=== PATIENT | female | born 1970 | race Caucasian/White ===

== ENCOUNTER 2023-03-17 13:29 | Outpatient (RCR) | payer OTHER, SELFPAY | END 2023-03-17 23:59 | disposition home or self-care (01) | LOC: RPT 13:29 | PROVIDERS: ATTENDING PHYSICIAN Surgery; FAMILY PHYSICIAN Nurse Practitioner Adult Health | DX: C50.411 Malignant neoplasm of upper-outer quadrant of right female breast (principal); C50.912 Malignant neoplasm of unspecified site of left female breast | CPT/HCPCS: 97161; 97535 ==

== ENCOUNTER → 2023-03-25 10:01 | Outpatient (REF) | payer OTHER, SELFPAY ==
[2023-03-25 10:31] LABS: % Basophils 1.6 % (0-2); % Eosinophils 4.6 % (0-6); % Lymphocytes 17.7 % (20.5-51.1); % Monocytes 8.8 % (1.7-9.3); % Neutrophils 67.3 % (42.2-75.2); Absolute Basophils 0.1 10^3/uL (0-0.2); Absolute Eosinophils 0.2 10^3/uL (0-0.7); Absolute Lymphocytes 0.7 10^3/uL (1.2-3.4); Absolute Monocytes 0.3 10^3/uL (0.1-0.6); Absolute Neutrophils 2.5 10^3/uL (1.4-6.5); Hematocrit 38.1 % (37.0-47.0); Hemoglobin 12.6 g/dL (12.0-16.0); Mean Corp Hgb Conc. 33.1 g/dL (33.0-37.0); Mean Corpuscular Hgb 32.7 pg (27.0-31.0); Nucleated Red Blood Cells % 0 %; Platelet Count 258 10^3/uL (130-400); Red Blood Cell Count 3.85 10^6/uL (4.20-5.40); Red Cell Dist. Width 11.7 % (11.5-14.5); White Blood Cell Count 3.7 10^3/uL (4.8-10.8)
== END ==
LOC: REG 10:01
PROVIDERS: ATTENDING PHYSICIAN Surgery; FAMILY PHYSICIAN Nurse Practitioner Adult Health
DX: C50.411 Malignant neoplasm of upper-outer quadrant of right female breast (principal); Z01.812 Encounter for preprocedural laboratory examination
CPT/HCPCS: 36415; 85025

== ENCOUNTER → 2023-03-26 11:27 | Outpatient (REF) | payer OTHER, SELFPAY | LOC: WDC 11:27 | PROVIDERS: ATTENDING PHYSICIAN Surgery | DX: C50.411 Malignant neoplasm of upper-outer quadrant of right female breast (principal); C50.412 Malignant neoplasm of upper-outer quadrant of left female breast | CPT/HCPCS: 38792; 76942; A9541 ==

== ENCOUNTER 2023-03-27 07:01 | Inpatient (IN) | payer OTHER, SELFPAY ==
[2023-03-18 09:00] VITALS: BMI 34.7
[2023-03-18 09:06] LABS: Hematocrit 36.2 % (37.0-47.0); Hemoglobin 12.2 g/dL (12.0-16.0); Mean Corp Hgb Conc. 33.7 g/dL (33.0-37.0); Mean Corpuscular Volume 97.8 fL (81.0-99.0); Mean Platelet Volume 9.3 fL (7.4-10.4); Platelet Count 206 10^3/uL (130-400); White Blood Cell Count 2.4 10^3/uL (4.8-10.8)
[2023-03-18 10:02] LABS: ALT (SGPT) 33 U/L (0-35); AST (SGOT) 29 U/L (14-36); Albumin 4.2 g/dl (3.5-5.0); Alkaline Phosphatase 87 U/L (38-126); Blood Urea Nitrogen 21 mg/dl (7-17); Calcium 9.6 mg/dl (8.4-10.2); Carbon Dioxide 25 mmol/L (22-30); Chloride 102 mmol/L (98-107); Estimated Creatinine Clearance 95 ml/min; Glucose 101 mg/dl (70-99); Potassium 4.4 mmol/L (3.5-5.1); Sodium 138 mmol/L (135-145); Total Bilirubin 0.7 mg/dl (0.2-1.3); Total Protein 6.8 g/dl (6.3-8.2); eGFR > 60.00
[2023-03-18 10:08] LABS: Prealbumin (Transthyretin) 28.3 mg/dl (17.6-36.0)
[2023-03-18 10:22] LABS: Vitamin D, 25-OH*** 42.2 ng/mL (30-80)
[2023-03-27] VITALS (12 sets, daily range): BP systolic 10–135; BP diastolic 59–91; BMI 34.7; BMI 35.8
[2023-03-27] MEDS: NORMOSOL-R 1000 IV (11:43)
[2023-03-27] MEDS: TYLENOL 1000 MG PO (11:43)
--- NOTE | 2023-03-27 16:34 | W.IMMPOSTOP ---
Surgical Immed Post Op Note
-
Primary Surgeon: Lobo
Assisting Surgeon: None
Pre-op Diagnosis: Bilateral breast cancer S/P neoadjuvant chemotherapy
Post-op Diagnosis: Same
Procedure Performed: Bilateral mastectomies, bilateral sentinel lymph node mapping and biopsy, removal of right portacath
Anesthesia Type: GET
Specimen / Cultures: Bilateral breasts, bilateral sentinel nodes
Estimated Blood Loss: 20cc
Complications: None
Operative Findings: Neg lymph nodes bilaterally
Liberal Node Bx Breast Cancer
Liberal Node Bx Breast Cancer
Operation performed with curative intent: Yes
Tracer(s) to ID Liberal Nodes in Non-Neoadjuvant setting: N/A
Tracer(s) to ID Sentinal Nodes in the Neoadjuvant Setting: Dye and Radioactive Tracer
All nodes at end of dye-filled Lymphatic Channel removed: Yes
All Significantly Radioactive Nodes were removed: Yes
All Palpably Suspicious Nodes were Removed: Yes
Bx Proven Pos Nodes Marked Prior to Chemo ID'd & Removed: Yes
[2023-03-27] MEDS: D5/0.45%NSS with KCL 20 MEQ 1000 IV (17:29)
--- NOTE | 2023-03-27 18:12 | PTCARENOTE ---
Patient admitted from [facility] post b/l mastectomy with lymph node removal.Vital signs are stable.The patient says she is having some numbness in her right hand but is otherwise comfortable.She has a surgical bra with abd's and gauze which is clean and
dry.The patient is in her bed with the call garnett.Her is at the bedside.
[2023-03-27] MEDS: COLACE 100 MG PO (20:44)
[2023-03-27] MEDS: COMPAZINE 5 MG IV (22:29)
[2023-03-28 03:05] VITALS: BP 127/73
[2023-03-28] MEDS: D5/0.45%NSS with KCL 20 MEQ 1000 IV (05:10)
[2023-03-28] MEDS: MOTRIN 600 MG PO (05:14)
[2023-03-28 06:28] LABS: Hematocrit 31.8 % (37.0-47.0); Hemoglobin 10.7 g/dL (12.0-16.0)
[2023-03-28 07:30] VITALS: BP 121/78
--- NOTE | 2023-03-28 08:24 | W.PN.UPDATE ---
Update Note
Progress Note Update
Pt is POD #1 S/P bilateral mastectomies, sentinel lymph node mapping and biopsies and removal right port. Resting comfortably in bed. Has only taken Motrin for discomfort. All flaps viable, no bleeding and drains functioning well. Plan D/C to home
today with [facility] for drain care. See me in office in 2 weeks.
--- NOTE | 2023-03-28 08:29 | W.DCSUMMARY ---
Discharge Summary
Discharge Data
Date of Admission: 03/27/23
Date of Discharge: 03/28/23
Total time spent discharging patient (in min): 15
-
Pending Results: Yes
Additional Pending Results:
Pathology bilateral breasts and sentinel nodes
Hospital Course
Smooth, tolerating PO pain med and intake. No evidence of bleeding
Discharge Plan
-
Patient Disposition: Home (Routine Discharge)
Discharge Diagnosis/Procedures: Bilateral breast cancer S/P neoadjuvant chemotherapy
Condition: Good
Diet: No restrictions
Additional Diets: Increase daily protein [id number]
Activity: No strenuous activity
Driving Restrictions: No driving for 1 week
Bathing Restrictions: OK to Shower
Other Services: [facility]
Wound Care: change dressings daily
Referrals:
Tessa Ho CRNP [Family Provider] -
Prescriptions:
Continued
lisinopril 10 mg Tablet
10 mg PO DAILY
Nutrafol
4 cap PO DAILY
Discharge Orders:
Discharge Patient (As Directed); Ordered 03/28/23
Ordered By: Sumi Diamond
[2023-03-28] MEDS: PROTONIX 40 MG PO (09:01)
[2023-03-28] MEDS: COLACE 100 MG PO (09:01)
[2023-03-28] MEDS: ZESTRIL 10 MG PO (09:01)
--- NOTE | 2023-03-28 10:00 | CM ---
sustainable products marketing manager reviewed patient's chart and met with patient and spouse at bedside, patient resides with her spouse in a 2 story home, patient is independent with adl's and ambulation, no dme, patient drives, patient has a prescription plan and uses
[facility].
PCP: Tessa Gao.
Plan; Home with [facility], [facility]
== END 2023-03-28 10:48 | disposition home health service (06) | DRG 581 ==
LOC: 2 SOUTH 07:01
PROVIDERS: ADMITTING PHYSICIAN Surgery; FAMILY PHYSICIAN Nurse Practitioner Adult Health
PROC: 02PY03Z Removal of Infusion Device from Great Vessel, Open Approach (ICD-10-PCS; 2023-03-27)
PROC: 07B50ZX Excision of Right Axillary Lymphatic, Open Approach, Diagnostic (ICD-10-PCS; 2023-03-27)
PROC: 0JPT0XZ Removal of Tunneled Vascular Access Device from Trunk Subcutaneous Tissue and Fascia, Open Approach (ICD-10-PCS; 2023-03-27)
PROC: 0HTV0ZZ Resection of Bilateral Breast, Open Approach (ICD-10-PCS; 2023-03-27)
DX: C50.911 Malignant neoplasm of unspecified site of right female breast (principal); C50.912 Malignant neoplasm of unspecified site of left female breast; I10 Essential (primary) hypertension; E78.00 Pure hypercholesterolemia, unspecified; Z17.0 Estrogen receptor positive status [ER+]; Z92.21 Personal history of antineoplastic chemotherapy
CPT/HCPCS: 88307; 88332; 36415; 80053; 82306; 84134; 85014; 85018; 85027; 88331; 88342; 93005; A4648; C1729

== ENCOUNTER 2023-04-22 19:12 | Outpatient (RCR) | payer OTHER, SELFPAY | END 2023-04-22 23:59 | disposition home or self-care (01) | LOC: RPT 19:12 | PROVIDERS: ATTENDING PHYSICIAN Surgery; FAMILY PHYSICIAN Nurse Practitioner Adult Health | DX: I97.2 Postmastectomy lymphedema syndrome (principal); C50.411 Malignant neoplasm of upper-outer quadrant of right female breast | CPT/HCPCS: 97140 ==

== ENCOUNTER 2023-05-22 12:57 | Outpatient (RCR) | payer OTHER, SELFPAY | END 2023-05-22 23:59 | disposition home or self-care (01) | LOC: RPT 12:57 | PROVIDERS: ATTENDING PHYSICIAN Surgery; FAMILY PHYSICIAN Nurse Practitioner Adult Health | DX: I97.2 Postmastectomy lymphedema syndrome (principal); C50.411 Malignant neoplasm of upper-outer quadrant of right female breast; Z90.13 Acquired absence of bilateral breasts and nipples | CPT/HCPCS: 97110; 97140; 97535 ==

== ENCOUNTER → 2023-06-01 09:31 | Outpatient (REF) | payer OTHER, SELFPAY | LOC: RAD 09:31 | PROVIDERS: ATTENDING PHYSICIAN Internal Medicine Hematology & Oncology; FAMILY PHYSICIAN Nurse Practitioner Adult Health | DX: C50.412 Malignant neoplasm of upper-outer quadrant of left female breast (principal) | CPT/HCPCS: 77080 ==

== ENCOUNTER 2023-06-23 09:57 | Outpatient (RCR) | payer OTHER, SELFPAY | END 2023-06-23 23:59 | disposition home or self-care (01) | LOC: RPT 09:57 | PROVIDERS: ATTENDING PHYSICIAN Surgery; FAMILY PHYSICIAN Nurse Practitioner Adult Health | DX: C50.411 Malignant neoplasm of upper-outer quadrant of right female breast (principal); Z73.6 Limitation of activities due to disability | CPT/HCPCS: 97110; 97140 ==

== ENCOUNTER 2023-07-03 09:59 | Outpatient (RCR) | payer OTHER, SELFPAY | END 2023-07-03 12:51 | disposition home or self-care (01) | LOC: RPT 09:59 | PROVIDERS: ATTENDING PHYSICIAN Surgery; FAMILY PHYSICIAN Nurse Practitioner Adult Health | DX: C50.411 Malignant neoplasm of upper-outer quadrant of right female breast (principal) | CPT/HCPCS: 97140 ==

== ENCOUNTER → 2023-07-29 15:56 | Outpatient (REF) | payer OTHER, SELFPAY ==
[2023-07-29 15:13] LABS: ALT (SGPT) 26 U/L (0-35); AST (SGOT) 28 U/L (14-36); Albumin 4.3 g/dl (3.5-5.0); Alkaline Phosphatase 99 U/L (38-126); Blood Urea Nitrogen 19 mg/dl (7-17); Calcium 9.9 mg/dl (8.4-10.2); Carbon Dioxide 27 mmol/L (22-30); Chloride 102 mmol/L (98-107); Glucose 111 mg/dl (70-99); Potassium 4.2 mmol/L (3.5-5.1); Sodium 137 mmol/L (135-145); Total Bilirubin 0.4 mg/dl (0.2-1.3); eGFR 54.13
== END ==
LOC: OIDL 15:56
PROVIDERS: ATTENDING PHYSICIAN Internal Medicine Hematology & Oncology
DX: C50.412 Malignant neoplasm of upper-outer quadrant of left female breast (principal)
CPT/HCPCS: 80053

== ENCOUNTER 2023-08-20 17:57 | Outpatient (RCR) | payer OTHER, SELFPAY | END 2023-08-20 23:59 | disposition home or self-care (01) | LOC: RPT 17:57 | PROVIDERS: ATTENDING PHYSICIAN Surgery; FAMILY PHYSICIAN Nurse Practitioner Adult Health | DX: C50.412 Malignant neoplasm of upper-outer quadrant of left female breast (principal); Z73.6 Limitation of activities due to disability; M62.81 Muscle weakness (generalized); L90.5 Scar conditions and fibrosis of skin | CPT/HCPCS: 97110; 97140; 97162; 97530 ==

== ENCOUNTER 2023-09-23 15:11 | Outpatient (RCR) | payer OTHER, SELFPAY | END 2023-09-23 23:59 | disposition home or self-care (01) | LOC: RPT 15:11 | PROVIDERS: ATTENDING PHYSICIAN Surgery; FAMILY PHYSICIAN Nurse Practitioner Adult Health | DX: C50.412 Malignant neoplasm of upper-outer quadrant of left female breast (principal); M62.81 Muscle weakness (generalized); L90.5 Scar conditions and fibrosis of skin | CPT/HCPCS: 97110; 97112; 97140; 97530 ==

== ENCOUNTER → 2023-09-24 13:16 | Outpatient (REF) | payer OTHER, SELFPAY | LOC: RAD 13:16 | PROVIDERS: ATTENDING PHYSICIAN Internal Medicine Hematology & Oncology; FAMILY PHYSICIAN Nurse Practitioner Adult Health | DX: C50.412 Malignant neoplasm of upper-outer quadrant of left female breast (principal); I97.2 Postmastectomy lymphedema syndrome | CPT/HCPCS: 71046 ==

== ENCOUNTER → 2023-10-13 14:46 | Outpatient (REF) | payer OTHER, SELFPAY | LOC: RCS 14:46 | PROVIDERS: ATTENDING PHYSICIAN Internal Medicine Hematology & Oncology; FAMILY PHYSICIAN Nurse Practitioner Adult Health | DX: C50.412 Malignant neoplasm of upper-outer quadrant of left female breast (principal); I97.2 Postmastectomy lymphedema syndrome | CPT/HCPCS: 93306; 93356 ==

== ENCOUNTER 2023-10-23 09:02 | Outpatient (RCR) | payer OTHER, SELFPAY | END 2023-10-23 23:59 | disposition home or self-care (01) | LOC: RPT 09:02 | PROVIDERS: ATTENDING PHYSICIAN Surgery; FAMILY PHYSICIAN Nurse Practitioner Adult Health | DX: I97.2 Postmastectomy lymphedema syndrome (principal); M62.81 Muscle weakness (generalized); L90.5 Scar conditions and fibrosis of skin; Z73.6 Limitation of activities due to disability | CPT/HCPCS: 97110; 97112; 97530 ==

== ENCOUNTER 2023-11-20 15:03 | Outpatient (RCR) | payer OTHER, SELFPAY | END 2023-11-20 23:59 | disposition home or self-care (01) | LOC: RPT 15:03 | PROVIDERS: ATTENDING PHYSICIAN Surgery; FAMILY PHYSICIAN Nurse Practitioner Adult Health | DX: C50.412 Malignant neoplasm of upper-outer quadrant of left female breast (principal); R53.0 Neoplastic (malignant) related fatigue; N94.10 Unspecified dyspareunia; M62.81 Muscle weakness (generalized); L90.5 Scar conditions and fibrosis of skin; Z73.6 Limitation of activities due to disability | CPT/HCPCS: 97110; 97112; 97140; 97162; 97530 ==

== ENCOUNTER → 2023-12-15 15:20 | Outpatient (REF) | payer OTHER, SELFPAY | LOC: RAD 15:20 | PROVIDERS: ATTENDING PHYSICIAN Nurse Practitioner Adult Health; FAMILY PHYSICIAN Nurse Practitioner Adult Health | DX: M79.662 Pain in left lower leg (principal) | CPT/HCPCS: 93971 ==

== ENCOUNTER 2023-12-18 14:54 | Outpatient (RCR) | payer OTHER, SELFPAY | END 2023-12-18 23:59 | disposition home or self-care (01) | LOC: RPT 14:54 | PROVIDERS: ATTENDING PHYSICIAN Surgery; FAMILY PHYSICIAN Nurse Practitioner Adult Health | DX: C50.412 Malignant neoplasm of upper-outer quadrant of left female breast (principal); R53.0 Neoplastic (malignant) related fatigue; N94.10 Unspecified dyspareunia; M62.81 Muscle weakness (generalized); L90.5 Scar conditions and fibrosis of skin; Z73.6 Limitation of activities due to disability | CPT/HCPCS: 97110; 97112; 97530 ==

== ENCOUNTER 2024-01-01 07:41 | Outpatient (RCR) | payer OTHER, SELFPAY | END 2024-01-05 07:42 | disposition home or self-care (01) | LOC: RPT 07:41 | PROVIDERS: ATTENDING PHYSICIAN Surgery; FAMILY PHYSICIAN Nurse Practitioner Adult Health | DX: C50.412 Malignant neoplasm of upper-outer quadrant of left female breast (principal); R53.0 Neoplastic (malignant) related fatigue; C50.911 Malignant neoplasm of unspecified site of right female breast; N94.10 Unspecified dyspareunia; Z73.6 Limitation of activities due to disability; L90.5 Scar conditions and fibrosis of skin; Z90.13 Acquired absence of bilateral breasts and nipples | CPT/HCPCS: 97110; 97530 ==